=== PATIENT | female | born 1965 | race Caucasian/White ===

== ENCOUNTER 2019-03-01 09:20 | Emergency (ER) | payer OTHER ==
[2019-03-01 09:26] VITALS: RESP 18; TEMP 97.5
[2019-03-01] MEDS ORDERED: ONDANSETRON 4 MG/2 ML VIAL IVP STA (09:42)
[2019-03-01] MEDS ORDERED: SODIUM CHLORIDE 0.9% 1,000 ML IV ONE (09:42)
--- NOTE | 2019-03-01 09:53 | ED ---
General Adult HPI - General Chief complaint: Headache Stated complaint: Vomiting Time Seen by Provider: 03/01/19 09:25 Source: patient, RN notes reviewed, old records reviewed Mode of arrival: ambulatory Limitations: no limitations - History of Present Illness Initial comments: This is a 53-year-old female who presents to the emergency department compla ining of having a sinus infection. Patient states she was taking Zithromax and then switched to amoxicillin and now she started vomiting yesterday and having diarrhea. Patient states she does have a history of Crohn's but usually her diarrhea is under control. Patient states she thinks it might have been the antibiotics that started this. Patient states she thinks she is dehydrated. Patient also complains of having a cough. Patient states she thinks she hurt her rib on the right side because every time she takes deep breath now it hurts over there. Patient denies any fever chills per patient denies any back pain. Patient denies any blood in the emesis or stool. - Related Data Allergies Allergy/AdvReac Type Severity Reaction Status Date / Time azithromycin AdvReac Abdominal Verified 03/01/19 09:27 [From Zithromax Z-Tien] Pain promethazine [From Phenergan] AdvReac Unknown Verified 03/01/19 09:27 Review of Systems ROS Statement: Those systems with pertinent positive or pertinent negative responses have been documented in the HPI. ROS Other: All systems not noted in ROS Statement are negative. Past Medical History Past Medical History: Osteoarthritis (OA) Additional Past Medical History / Comment(s): chostrochondritis, atuoimmune disorder, crohns History of Any Multi-Drug Resistant Organisms: None Reported Past Surgical History: Bowel Resection, Cholecystectomy Additional Past Surgical History / Comment(s): left hip sx Past Psychological History: Depression Smoking Status: Former smoker Past Alcohol Use History: None Reported Past Drug Use History: None Reported General Exam - General Exam Comments Initial Comments: GENERAL: Patient is well-developed and well-nourished. Patient is nontoxic and well- hydrated and is in mild distress. ENT: Neck is soft and supple. No significant lymphadenopathy is noted. Oropharynx is clear. Moist mucous membranes. Neck has full range of motion without eliciting any pain. EYES: The sclera were anicteric and conjunctiva were pink and moist. Extraocular movements were intact and pupils were equal round and reactive to light. Eyelids were unremarkable. PULMONARY: Unlabored respirations. Good breath sounds bilaterally. No audible rales rhonchi or wheezing was noted. CARDIOVASCULAR: There is a regular rate and rhythm without any murmurs gallops or rubs. ABDOMEN: Soft and nontender with normal bowel sounds. SKIN: Skin is clear with no lesions or rashes and otherwise unremarkable. NEUROLOGIC: Patient is alert and oriented x3. Cranial nerves II through XII are grossly intact. Motor and sensory are also intact. Normal speech, volume and content. Symmetrical smile. MUSCULOSKELETAL: Normal extremities with adequate strength and full range of motion. No lower extremity swelling or edema. No calf tenderness. LYMPHATICS: No significant lymphadenopathy is noted PSYCHIATRIC: Normal psychiatric evaluation. Limitations: no limitations Course Vital Signs 03/01/19 03/01/19 09:23 10:55 Temperature 97.5 F L Pulse Rate 113 H 87 Respiratory 18 18 Rate Blood Pressure 147/84 112/80 O2 Sat by Pulse 99 98 Oximetry Medical Decision Making - Medical Decision Making Patient's CT of the brain shows no acute abnormality. There is no sinusitis. Patient was resting comfortably in the emergency department had no vomiting or diarrhea. Patient stated she was feeling better when I went back to reevaluate her. - Lab Data Result diagrams: 03/01/19 09:38 03/01/19 09:38 Lab Results 03/01/19 03/01/19 Range/Units 09:38 09:38 WBC 15.9 H (3.8-10.6) k/uL RBC 5.70 H (3.80-5.40) m/uL Hgb 15.9 (11.4-16.0) gm/dL Hct 48.8 H (34.0-46.0) % MCV 85.5 (80.0-100.0) fL MCH 27.9 (25.0-35.0) pg MCHC 32.7 (31.0-37.0) g/dL RDW 13.9 (11.5-15.5) % Plt Count 364 (150-450) k/uL Neutrophils % 86 % Lymphocytes % 7 % Monocytes % 4 % Eosinophils % 2 % Basophils % 0 % Neutrophils # 13.8 H (1.3-7.7) k/uL Lymphocytes # 1.2 (1.0-4.8) k/uL Monocytes # 0.6 (0-1.0) k/uL Eosinophils # 0.3 (0-0.7) k/uL Basophils # 0.0 (0-0.2) k/uL Sodium 139 (137-145) mmol/L Potassium 3.4 L (3.5-5.1) mmol/L Chloride 102 (98-107) mmol/L Carbon Dioxide 23 (22-30) mmol/L Anion Gap 14 mmol/L BUN 12 (7-17) mg/dL Creatinine 0.75 (0.52-1.04) mg/dL Est GFR (CKD-EPI)AfAm >90 (>60 ml/min/1.73 sqM) Est GFR (CKD-EPI)NonAf >90 (>60 ml/min/1.73 sqM) Glucose 127 H (74-99) mg/dL Calcium 9.9 (8.4-10.2) mg/dL Total Bilirubin 1.1 (0.2-1.3) mg/dL AST 32 (14-36) U/L ALT 21 (4-34) U/L Alkaline Phosphatase 109 (38-126) U/L Total Protein 8.3 H (6.3-8.2) g/dL Albumin 4.8 (3.5-5.0) g/dL Disposition Clinical Impression: Gastroenteritis Disposition: HOME SELF-CARE Instructions (If sedation given, give patient instructions): Gastroenteritis (ED) Additional Instructions: Patient should take her Zofran and Lomotil as needed. Is patient prescribed a controlled substance at d/c from ED?: No Referrals: Mely Mcnally DO [Primary Care Provider] - 1-2 days Time of Disposition: 11:39
[2019-03-01 09:58] LABS: Basophils % (A) 0 %; Eosinophils # (A) 0.3 k/uL (0-0.7); Eosinophils % (A) 2 %; HCT 48.8 % (34.0-46.0); HGB 15.9 gm/dL (11.4-16.0); Lymphocytes # (A) 1.2 k/uL (1.0-4.8); Lymphocytes % (A) 7 %; MCH 27.9 pg (25.0-35.0); MCHC 32.7 g/dL (31.0-37.0); MCV 85.5 fL (80.0-100.0); Mean Platelet Volume 6.7; Monocytes # (A) 0.6 k/uL (0-1.0); Monocytes % (A) 4 %; Neutrophils # (A) 13.8 k/uL (1.3-7.7); Neutrophils % (A) 86 %; Platelet Count 364 k/uL (150-450); RDW 13.9 % (11.5-15.5); WBC 15.9 k/uL (3.8-10.6)
[2019-03-01 10:17] LABS: ALT 21 U/L (4-34); AST 32 U/L (14-36); African American GFR (CKD) >90 (>60 ml/min/1.73 sqM); Albumin 4.8 g/dL (3.5-5.0); Alkaline Phosphatase 109 U/L (38-126); Anion Gap 14 mmol/L; Blood Urea Nitrogen 12 mg/dL (7-17); Calcium 9.9 mg/dL (8.4-10.2); Carbon Dioxide 23 mmol/L (22-30); Chloride 102 mmol/L (98-107); Glucose 127 mg/dL (74-99); Non-African American GFR(CKD) >90 (>60 ml/min/1.73 sqM); Potassium 3.4 mmol/L (3.5-5.1); Sodium 139 mmol/L (137-145); Total Bilirubin 1.1 mg/dL (0.2-1.3); Total Protein 8.3 g/dL (6.3-8.2)
--- NOTE | 2019-03-01 10:38 | CT ---
EXAMINATION TYPE: CT brain wo con DATE OF EXAM: 03/01/2019 HISTORY: Headache. CT DLP: 1076.4 mGycm. Automated Exposure Control for Dose Reduction was Utilized. TECHNIQUE: CT scan of the head is performed without contrast. COMPARISON: None. FINDINGS: There is no acute intracranial hemorrhage or midline shift identified. Ventricles and sul ci are within normal limits in size for patient's age. Kendrick-white matter differentiation is preserve d. Suspect small right frontal calcified meningioma axial image 29 and coronal image 14 measuring abraham roximately 1.6 x 0.6 cm. The globes are intact and the visualized sinuses are clear. IMPRESSION: No acute intracranial hemorrhage or midline shift. Small right frontal 1.6 cm calcified meningioma with local mass effect otherwise unremarkable study.
--- NOTE | 2019-03-01 10:44 | XR ---
EXAMINATION TYPE: XR chest 2V DATE OF EXAM: 03/01/2019 COMPARISON: NONE TECHNIQUE: PA and lateral views submitted. HISTORY: Difficulty breathing FINDINGS: The lungs are clear and there is no pneumothorax, pleural effusion, or focal pneumonia. There is co ngenital fusion of the anterior margins of the first and second ribs bilaterally. No overt failure. S urgical clips in the upper abdomen noted. Hypertrophic change of the spine. IMPRESSION: 1. No acute process.
[2019-03-01 10:55] VITALS: BP 112/80; PULSE 87
[2019-03-01] MEDS ORDERED: KETOROLAC 60 MG/2 ML VIAL IVP STA (10:59)
== END 2019-03-01 11:40 | disposition home or self-care (01) ==
LOC: EC 09:20
DX: K52.9 Noninfective gastroenteritis and colitis, unspecified (principal); R05 Cough; Z98.890 Other specified postprocedural states; Z90.49 Acquired absence of other specified parts of digestive tract; Z87.19 Personal history of other diseases of the digestive system; Z87.891 Personal history of nicotine dependence; Z88.1 Allergy status to other antibiotic agents; Z88.8 Allergy status to other drugs, medicaments and biological substances
CPT/HCPCS: 36415; 80053; 85025; 71046; 70450; 99285; 96374; 96375; 96361; J2405; J1885